=== PATIENT | male | born 1960 | race Caucasian/White ===

== ENCOUNTER → 2021-03-24 | Day surgery (SDC) | payer MEDICAID ==
[~2021-03-24] VITALS: Ht 185.4 cm; Wt 112.5 kg
[~2021-03-24] MED LIST: ALBU90AE IH; AMLO5TAB88 PO; ASPI-1497 PO; ATOR40TA70 PO; CITA20SO2 PO; CITA20TA75 PO; CLINDAMYCIN 900 MG PREMIX 50 ML IV ONE; DIPHENHYDRAMINE 50MG/ML VIAL IV NR; FENTANYL CITRATE/PF 50MCG/ML 2ML VIAL ONE; FEXO-61 PO; HYALURONATE SODIUM 10 MG/ML 0.55ML SYRINGE IO ONE; HYDROCODONE/ACETAMINOPHEN 5/325MG TABLET PO NR; KETOROLAC 30MG/ML VIAL IV NR; LACTATED RINGERS 1,000 ML IV SCH; LISI10TA26 PO; METF-416 MT; MIDAZOLAM HCL 2 MG/2 ML VIAL ONE; PROPOFOL 200MG/20ML VIAL IV ONE; SODIUM CHLORIDE 0.9% 1,000 ML IV SCH; TRYPAN BLUE 0.5 ML DISP.SYRIN IO ONE
[2021-03-24 11:20] VITALS: BP 125/69
== END | disposition home or self-care (01) ==
LOC: OR 07:27
PROVIDERS: ATTEND Ophthalmology
DX: H04.132 Lacrimal cyst, left lacrimal gland (principal); I10 Essential (primary) hypertension; J45.909 Unspecified asthma, uncomplicated; E78.00 Pure hypercholesterolemia, unspecified; E11.65 Type 2 diabetes mellitus with hyperglycemia; K21.9 Gastro-esophageal reflux disease without esophagitis; F32.9 Major depressive disorder, single episode, unspecified; D49.89 Neoplasm of unspecified behavior of other specified sites; Z87.891 Personal history of nicotine dependence; Z79.82 Long term (current) use of aspirin; Z79.84 Long term (current) use of oral hypoglycemic drugs; Z79.899 Other long term (current) drug therapy; Z98.890 Other specified postprocedural states; Z88.0 Allergy status to penicillin; Z20.822 Contact with and (suspected) exposure to COVID-19
CPT/HCPCS: 68540; 82962; 87426; J1200; J2250; J2704; J3010; J3490; Q9957